=== PATIENT | female | born 1945 | race Caucasian/White ===

== ENCOUNTER 2019-03-05 06:54 | Day surgery (SDC) | payer MEDICARE, BC ==
[~2019-03-05 06:54] MED LIST: Lactated Ringers 1,000 ML IV SCH; Lidocaine 1%/Sod Bicarbonate in NS 8.4% 1 ML Syringe IDERM PRN; Sodium Chloride 0.9% 10 ML Syringe FLUSH PRN
[2019-03-05] MEDS ORDERED: Lidocaine 1% 4 ML ONE (07:28)
[2019-03-05] MEDS ORDERED: Propofol 200 MG/20 ML SDV ONE (07:29)
[2019-03-05] MEDS ORDERED: fentaNYL 100 MCG/2 ML SDV ONE (07:29)
--- NOTE | 2019-03-05 07:32 | PCM.PREANE ---
Preanesthetic Assessment - Procedure Proposed Procedure: colonoscopy and egd - Anesthesia/Transfusion/Family Hx Anesthesia History: Prior Anesthesia Without Reaction Family History of Anesthesia Reaction: No Transfusion History: No Prior Transfusion(s) - Review of Systems General: No Symptoms Pulmonary: Shortness of Breath (any exertion) Cardiovascular: No Symptoms Gastrointestinal: No Symptoms Neurological: No Symptoms Other: Reports: Thyroid Problems - Physical Assessment NPO Status Date: 03/04/19 NPO Status Time: 21:00 Pulse: 73 O2 Sat by Pulse Oximetry: 97 Respiratory Rate: 16 Blood Pressure: 183/83 Temperature: 97.6 F Height: 5 ft 3 in Weight: 70 kg ASA Class: 3 Mental Status: Alert & Oriented x3 Airway Class: Mallampati = 1 Dentition: Reports: Normal Dentition Thyro-Mental Finger Breadths: 3 Mouth Opening Finger Breadths: 3 ROM/Head Extension: Full Lungs: Clear to Auscultation, Normal Respiratory Effort Cardiovascular: Regular Rate, Regular Rhythm - Allergies Allergies/Adverse Reactions: Allergies Allergy/AdvReac Type Severity Reaction Status Date / Time Penicillins Allergy Cannot Verified 03/04/19 10:57 Remember - Blood Blood Available: No - Anesthesia Plan Beta Orion: Labetalol Med Last Dose Date: 03/05/19 (n) Med Last Dose Time: 07:40 - Acknowledgements Anesthesia Type Planned: MAC Pt an Appropriate Candidate for the Planned Anesthesia: Yes Alternatives and Risks of Anesthesia Discussed w Pt/Guardian: Yes Pt/Guardian Understands and Agrees with Anesthesia Plan: Yes PreAnesthesia Questionnaire HEENT History: Reports: Other (See Below) Other HEENT History: eye surgery Cardiovascular History: Reports: CAD, Hypertension, Other (See Below) Other Cardiovascular History: bilateral carotid stenosis, aortic valve disease Respiratory History: Reports: SOB Gastrointestinal History: Reports: Other (See Below) Other Gastrointestinal History: dysphagia, positive cologard Genitourinary History: Reports: None 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 Neurological History: Reports: None Psychiatric History: Reports: None Endocrine/Metabolic History: Reports: Hypothyroidism Hematologic History: Reports: Other (See Below) Other Hematologic History: leukocytosis Immunologic History: Reports: None Oncologic (Cancer) History: Reports: None Dermatologic History: Reports: None - Past Surgical History Head Surgeries/Procedures: Reports: None Cardiovascular Surgical History: Reports: Carotid Endarterectomy, Coronary Artery Bypass Respiratory Surgical History: Reports: None Female Surgical History: Reports: Breast Biopsy Male Surgical History: Reports: None Endocrine Surgical History: Reports: None Neurological Surgical History: Reports: None Musculoskeletal Surgical History: Reports: None Oncologic Surgical History: Reports: None Dermatological Surgical History: Reports: None - SUBSTANCE USE Smoking Status *Q: Former Smoker Tobacco Use Within Last Twelve Months: No Second Hand Smoke Exposure: No Days Per Week of Alcohol Use: 0 Recreational Drug Use History: No - HOME MEDS Home Medications: Home Meds Aspirin [Children's Aspirin] 81 mg PO DAILY 03/04/19 [History] Labetalol HCl [Labetalol] 100 mg PO BID 03/04/19 [History] Levothyroxine 75 mcg PO DAILY 03/04/19 [History] Losartan Potassium 50 mg PO BID 03/04/19 [History] Rosuvastatin Calcium 20 mg PO DAILY 03/04/19 [History] hydroCHLOROthiazide [Hydrochlorothiazide] 12.5 mg PO DAILY 03/04/19 [History] - CURRENT (IN HOUSE) MEDS Current Meds: Current Medications Lactated Ringer's (Ringers, Lactated) 1,000 mls @ 125 mls/hr IV ASDIRECTED CIELO Stop: 03/05/19 23:00 Lidocaine/Sodium Bicarbonate (Buffered Lidocaine 1% In Ns 8.4%) 0.25 ml IDERM ONETIME PRN PRN Reason: Prior to IV Start Stop: 03/05/19 18:00 Sodium Chloride (Saline Flush) 10 ml FLUSH ASDIRECTED PRN PRN Reason: Keep Vein Open Stop: 03/05/19 18:00
[2019-03-05] MEDS ORDERED: ePHEDrine/Normal Saline 25 MG/5 ML Syringe ONE ×2 (08:21→08:33)
[2019-03-05] MEDS ORDERED: Phenylephrine/Normal Saline 100 MCG/ML 10 ML Syringe ONE (08:33)
--- NOTE | 2019-03-05 09:01 | PCM.OPNOTE ---
- General Post-Op/Procedure Note Date of Surgery/Procedure: 03/05/19 Operative Procedure(s): egd with bx/ colonoscopy Pre Op Diagnosis: positive cologuard/ dysphagia Post-Op Diagnosis: Same Anesthesia Technique: MAC Primary Surgeon: Sander Roman EBL in mLs: 0 Complications: None Condition: Good
--- NOTE | 2019-03-05 09:07 | PCM48HPAN ---
Post Anesthesia Note - EVALUATION WITHIN 48HRS OF ANESTHETIC Vital Signs in Normal Range: Yes Patient Participated in Evaluation: Yes Respiratory Function Stable: Yes Airway Patent: Yes Cardiovascular Function Stable: Yes Hydration Status Stable: Yes Pain Control Satisfactory: Yes Nausea and Vomiting Control Satisfactory: Yes Mental Status Recovered: Yes (awake and talking) Pulse Rate: 69 SaO2: 94 Resp Rate: 16 Temperature: 97.9 F Blood Pressure: 92/64
--- NOTE | 2019-03-06 08:51 | OR ---
DATE OF OPERATION: 03/05/2019 SURGEON: Sander Roman MD PREOPERATIVE DIAGNOSIS: Positive Cologuard. POSTOPERATIVE DIAGNOSIS: Positive Cologuard. OPERATION PERFORMED: Colonoscopy to the cecum. FINDINGS: Mild internal hemorrhoids. There was no angiodysplasias, neoplasias, large tumor, ulcerations or diverticulum. ANESTHESIA: Done under IV sedation. DESCRIPTION OF PROCEDURE: The patient was having been taken to the endoscopy room and having been connected to monitoring equipment, given IV sedation for upper GI endoscopy, IV sedation was continued for colonoscopy. She was placed in left lateral position. Perianal area inspected was normal. Rectal exam showed good sphincter tone. A video Olympus colonoscope was then introduced into the rectum and threaded up to the cecum, where the appendicular orifice was noted. Prep was excellent, [place]. Cleansing Score grade A, and the scope slowly withdrawn showing the cecum, ascending colon, transverse colon, descending colon, sigmoid colon, and rectum. The patient tolerated the procedure and sent to recovery room in a stable condition. ESTIMATED BLOOD LOSS: MMODAL /[id number]
--- NOTE | 2019-03-06 08:51 | OR ---
DATE OF OPERATION: 03/05/2019 SURGEON: Sadner Roman MD PREOPERATIVE DIAGNOSIS: Dysphagia. POSTOPERATIVE DIAGNOSIS: Dysphagia. OPERATION PERFORMED: Esophagogastroduodenoscopy with biopsy. FINDINGS: Some erythema in the duodenal bulb, which was biopsied. Second portion of the duodenum and pyloric channel were unremarkable. Antrum showed some flattening mucosa suggestive of chronic gastritis. Biopsies were taken. J-maneuver showed a small sliding hiatus. Body and cardia were unremarkable. GE junction was located at 40 cm. There was 1 linear erosion at the area, some irregularity in the Z-line, and multiple biopsies were taken of distal esophagus at the GE junction. The rest of the esophagus was unremarkable. ANESTHESIA: Done under IV sedation. DESCRIPTION OF PROCEDURE: The patient was taken to the endoscopy room, placed in a supine position, connected to monitoring equipment, given IV sedation. Bite block was inserted. A video Olympus gastroscope placed in the posterior oropharynx under direct vision and threaded past the cricopharyngeus, down the esophagus, into the stomach. The stomach was insufflated and scope passed through the pylorus to the second portion of the duodenum. It was slowly withdrawn showing normal second portion of the duodenum and duodenal bulb, which had some abnormalities as described above, which were biopsied. Pyloric channel was unremarkable. Antrum showed some flattening mucosa and this was biopsied looking for H. pylori and histology for chronic gastritis. J-maneuver showed intact hiatus, but there was a small sliding hiatal hernia. Body, cardia, and fundus of the stomach unremarkable. Scope withdrawn. The GE junction showed linear erosion and irregularity of the Z-line. Multiple biopsies were taken of the GE junction. It was located at 40 cm. Rest of the esophagus was viewed as the scope was withdrawn and unremarkable. The patient tolerated the procedure. Specimen sent to pathology in a labeled container. IV sedation continued for colonoscopy. ESTIMATED BLOOD LOSS: MMODAL /[id number]
== END 2019-03-05 09:59 | disposition home or self-care (01) ==
LOC: JD.SDS 06:54
PROVIDERS: ATTEND Surgery
DX: R19.5 Other fecal abnormalities (principal); K64.8 Other hemorrhoids; K20.9 Esophagitis, unspecified; K31.89 Other diseases of stomach and duodenum; K44.9 Diaphragmatic hernia without obstruction or gangrene; I25.10 Atherosclerotic heart disease of native coronary artery without angina pectoris; I11.0 Hypertensive heart disease with heart failure; I08.0 Rheumatic disorders of both mitral and aortic valves; I50.9 Heart failure, unspecified; E03.9 Hypothyroidism, unspecified; E78.01 Familial hypercholesterolemia; Z88.0 Allergy status to penicillin; Z95.1 Presence of aortocoronary bypass graft; Z87.891 Personal history of nicotine dependence; Z79.82 Long term (current) use of aspirin; Z79.899 Other long term (current) drug therapy
CPT/HCPCS: 36415; 43239; 45378; 80048; J2001; J2370; J2704; J3010; J7050; J7120; 00813

== ENCOUNTER 2020-12-19 07:29 | Day surgery (SDC) | payer MEDICARE, BC ==
[2020-12-19] MEDS ORDERED: Propofol 200 MG/20 ML SDV ONE ×2 (08:47→09:23)
--- NOTE | 2020-12-19 09:11 | PCM.PREANE ---
Preanesthetic Assessment - Anesthesia/Transfusion/Family Hx Anesthesia History: Prior Anesthesia Without Reaction Family History of Anesthesia Reaction: No Transfusion History: No Prior Transfusion(s) - Review of Systems General: Other (covid negative) Pulmonary: Shortness of Breath (chronic) Cardiovascular: Other (hx of CABG and carotid, HTN, CHF on diuretic) Gastrointestinal: Other (hiatal hernia, barretts esophagus) Other: Reports: Thyroid Problems - Physical Assessment NPO Status Date: 12/18/20 NPO Status Time: 22:00 Vital Signs: Last Vital Signs Temp 36.6 C 12/19/20 07:35 Pulse 60 12/19/20 07:35 Resp 16 12/19/20 07:35 BP 149/59 H 12/19/20 07:35 Pulse Ox 97 12/19/20 07:35 Height: 1.6 m Weight: 71.668 kg ASA Class: 3 Mental Status: Alert & Oriented x3 Airway Class: Mallampati = 2 Dentition: Reports: Normal Dentition Thyro-Mental Finger Breadths: 3 Mouth Opening Finger Breadths: 3 ROM/Head Extension: Full Lungs: Clear to Auscultation, Normal Respiratory Effort Cardiovascular: Regular Rate, Regular Rhythm - Lab Values: Laboratory Last Values SARS-CoV-2 RNA (SANDY) Negative (NEGATIVE) 12/19/20 07:30 - Allergies Allergies/Adverse Reactions: Allergies Allergy/AdvReac Type Severity Reaction Status Date / Time Penicillins Allergy Cannot Verified 12/19/20 08:44 Remember - Blood Blood Available: No Product(s) Available: None - Anesthesia Plan Pre-Op Medication Ordered: None Beta Orion: Labetalol Med Last Dose Date: 12/19/20 Med Last Dose Time: 06:30 - Acknowledgements Anesthesia Type Planned: MAC Pt an Appropriate Candidate for the Planned Anesthesia: Yes Alternatives and Risks of Anesthesia Discussed w Pt/Guardian: Yes Pt/Guardian Understands and Agrees with Anesthesia Plan: Yes PreAnesthesia Questionnaire HEENT History: Reports: Impaired Vision, Other (See Below) Other HEENT History: wears glasses Cardiovascular History: Reports: CAD, High Cholesterol, Hypertension, Other (See Below) Other Cardiovascular History: bilateral carotid stenosis, aortic valve disease Respiratory History: Reports: SOB Gastrointestinal History: Reports: Hiatal Hernia, Other (See Below) Other Gastrointestinal History: dysphagia, arizmendi's esophagus Genitourinary History: Reports: None 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 Musculoskeletal History: Reports: None Neurological History: Reports: None Psychiatric History: Reports: None Endocrine/Metabolic History: Reports: Hypothyroidism Hematologic History: Reports: Other (See Below) Other Hematologic History: leukocytosis Immunologic History: Reports: None Oncologic (Cancer) History: Reports: None Dermatologic History: Reports: None - Past Surgical History Head Surgeries/Procedures: Reports: None HEENT Surgical History: Reports: Cataract Surgery, Laser Surgery Cardiovascular Surgical History: Reports: Carotid Endarterectomy, Coronary Artery Bypass Respiratory Surgical History: Reports: None GI Surgical History: Reports: Bariatric Procedure, Colonoscopy, EGD Female Surgical History: Reports: Breast Biopsy Male Surgical History: Reports: None Endocrine Surgical History: Reports: None Neurological Surgical History: Reports: None Musculoskeletal Surgical History: Reports: None Oncologic Surgical History: Reports: None Dermatological Surgical History: Reports: None - SUBSTANCE USE Tobacco Use Status *Q: Former Tobacco User Recreational Drug Use History: No - HOME MEDS Home Medications: Home Meds Aspirin [Children's Aspirin] 81 mg PO DAILY 03/04/19 [History] Labetalol HCl [Labetalol] 100 mg PO BID 03/04/19 [History] Losartan Potassium 50 mg PO BID 03/04/19 [History] Rosuvastatin Calcium 20 mg PO DAILY 03/04/19 [History] hydroCHLOROthiazide [Hydrochlorothiazide] 25 mg PO DAILY 03/04/19 [History] Levothyroxine Sodium [Levothyroxine] 50 mcg PO DAILY 12/16/20 [History] amLODIPine Besylate [Norvasc] 2.5 mg PO DAILY 12/16/20 [History] - CURRENT (IN HOUSE) MEDS Current Meds: Current Medications Lactated Ringer's (Ringers, Lactated) 1,000 mls @ 125 mls/hr IV ASDIRECTED CIELO Stop: 12/19/20 23:00 Last Admin: 12/19/20 07:40 Dose: 125 mls/hr Documented by: Lidocaine/Sodium Bicarbonate (Lidocaine 1%/Sod Bicarbonate In Ns 8.4% 1 Ml Syringe) 0.25 ml IDERM ONETIME PRN PRN Reason: Prior to IV Start Stop: 12/19/20 18:00 Last Admin: 12/19/20 07:40 Dose: 0.25 ml Documented by: Sodium Chloride (Sodium Chloride 0.9% 10 Ml Syringe) 10 ml FLUSH ASDIRECTED PRN PRN Reason: Keep Vein Open Stop: 12/19/20 18:00 Discontinued Medications Propofol (Propofol 200 Mg/20 Ml Sdv) Confirm Administered Dose 200 mg .ROUTE .STK-MED ONE Stop: 12/19/20 08:48
--- NOTE | 2020-12-19 10:18 | PCM48HPAN ---
Post Anesthesia Note - EVALUATION WITHIN 48HRS OF ANESTHETIC Vital Signs in Normal Range: Yes Patient Participated in Evaluation: Yes Respiratory Function Stable: Yes Airway Patent: Yes Cardiovascular Function Stable: Yes Hydration Status Stable: Yes Pain Control Satisfactory: Yes Nausea and Vomiting Control Satisfactory: Yes Mental Status Recovered: Yes Vital Signs: Last Vital Signs Temp 36.6 C 12/19/20 07:35 Pulse 60 12/19/20 07:35 Resp 16 12/19/20 07:35 BP 149/59 H 12/19/20 07:35 Pulse Ox 97 12/19/20 07:35
--- NOTE | 2020-12-19 11:20 | PROC ---
DATE OF OPERATION: 12/19/2020 SURGEON: Sandra Tan MD PREOPERATIVE DIAGNOSES: Dysphagia and history of Vargas esophagus. POSTOPERATIVE DIAGNOSES: 1. Superficial antral ulcers - biopsied. 2. Small hiatal hernia. 3. 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 4. [id number]-[id number] stenosis in the distal esophagus - dilated. OPERATION PERFORMED: Esophagogastroduodenoscopy with dilation. ANESTHESIA: Monitored anesthesia care. ESTIMATED BLOOD LOSS: Minimal. COMPLICATIONS: None. INDICATION AND CONSENT: The patient is a 75-year-old female who was seen and evaluated for dysphagia and followup for Vargas esophagus. The patient had undergone EGD in 2019, was found to have Vargas esophagus on biopsies and since last EGD, the patient has been having some trouble swallowing especially solid foods such as meats and breads. Therefore, decision was made to proceed with surveillance scope for Vargas esophagus as well as possible dilation. We discussed risks, benefits, and alternatives for this patient. Informed consent was obtained. DESCRIPTION OF PROCEDURE: The patient was taken to the procedure room, placed in left lateral decubitus position. Bite block was placed. Time-out was performed, and procedure was started. We took the Olympus scope, placed into the mouth, and taking all the way to the second portion of duodenum, which was normal. The first portion of duodenum was normal. In the antrum, there were several superficial ulcerations that were nonbleeding. Two of these were biopsied for pathologic exam. These were located only in the antrum. The body as well as the fundus and cardia appeared to be normal. On retroflexion, there was small sliding-type hiatal hernia. We took the scope into the GE junction, which was at 36 cm. There was appearance of short segment Vargas esophagus at this area. Four quadrant biopsies were taken 1 cm apart for surveillance. This was taken in the GE junction and distal esophagus with cold forceps. EBL was minimal. Upon withdrawing into the distal esophagus, we noted that there was [id number] narrowing in the distal esophagus, the narrowing was intrinsic and benign appearing. Therefore, decision was made to go ahead and dilate this area to see if the patient will have some relief from her dysphagia. A 12, 13.5, and 15 TTS balloon was brought into the field and placed into the distal esophagus under direct visualization, and dilation was performed to 15 mm. Post dilation, the area appeared to be moderately open. After this was done, again we went back to examined this area. There was no significant mucosal disruption and there was no significant bleeding. Air was suctioned out, and scope was removed. The rest of the esophagus appeared to be normal. The patient will be allowed to return home. Follow up with me in [place] in 2 weeks to discuss pathology results. MMODAL /[id number] MTDAdan
== END 2020-12-19 11:19 | disposition home or self-care (01) ==
LOC: JD.SDS 07:29
PROVIDERS: ATTEND Surgery
DX: K22.2 Esophageal obstruction (principal); K29.50 Unspecified chronic gastritis without bleeding; K31.89 Other diseases of stomach and duodenum; K22.10 Ulcer of esophagus without bleeding; K44.9 Diaphragmatic hernia without obstruction or gangrene; I25.10 Atherosclerotic heart disease of native coronary artery without angina pectoris; I10 Essential (primary) hypertension; E78.00 Pure hypercholesterolemia, unspecified; Z01.812 Encounter for preprocedural laboratory examination; Z20.822 Contact with and (suspected) exposure to COVID-19; E03.9 Hypothyroidism, unspecified; Z79.890 Hormone replacement therapy; Z95.1 Presence of aortocoronary bypass graft; Z98.890 Other specified postprocedural states; Z79.899 Other long term (current) drug therapy; Z88.0 Allergy status to penicillin; Z87.891 Personal history of nicotine dependence
CPT/HCPCS: 43239; 43249; 88305; 88342; J2704; J7120; U0002; 00731; 99100

== ENCOUNTER 2021-02-12 06:20 | Emergency (ER) | payer MEDICARE, BC ==
--- NOTE | 2021-02-12 06:56 | EDM.PDOC ---
<SebastiánAngel landeros Rosa - Last Filed: 02/12/21 07:45> ED HPI GENERAL MEDICAL PROBLEM - General Chief Complaint: Neuro Symptoms/Deficits Stated Complaint: [facility] Time Seen by Provider: 02/12/21 06:28 Source of Information: Reports: Patient, Family (, son, [id number]) History Limitations: Reports: Altered Mental Status (slow to answer, mildly confused) - History of Present Illness INITIAL COMMENTS - FREE TEXT/NARRATIVE: A stroke alert was called for this patient. Mrs. Posada is a very pleasant 75-year-old woman who is now brought to the ED by EMS after she fell at home and was unable to get up. The patient's family tells me that she got to bed around 22:30 last night, then woke up around 05:30 this morning. She sat on the side of her bed, then fell onto the floor. She was able to communicate normally, but was unable to get up on her own. The patient's called their son and [id number], who came over and helped get her back into bed, however, when she continued to have weakness, they called EMS. EMS reported that they found her to have right upper extremity weakness. Both the patient and her tell me that the patient did not take any prescription or [id number] sleep aids last night. The patient's tells me that the patient had similar symptoms several years ago, due to dehydration. No prior history of stroke, although she has undergone bilateral carotid endarterectomies. Her only anticoagulant is an 81 mg aspirin per day. Here in the ED, the patient's initial BP is found to be elevated at 177/53, otherwise, she is hemodynamically stable, afebrile, saturating 94% on room air. She is complaining of a mild headache, and she vomited a small amount here in the ED. She appears to be comfortable while semirecumbent on the gurney, in no acute distress. According to the patient's family, prior to this morning, the patient denies having a recent fever, chills, sore throat, ear pain, nasal or sinus congestion, cough, dyspnea, chest pain, palpitations, nausea, vomiting, constipation, diarrhea, abdominal pain, urinary symptoms, recent weight gain or weight loss, recent bloody bowel movements or black bowel movements, recent joint aches, headaches, or rashes. The patient's does not recall the name of her PCP. Her Director Systems is Dr. Angel Freeman. The patient has received 2 doses of the COVID vaccine. Headache Pain Score (Numeric/FACES): 3 - Related Data Allergies Allergy/AdvReac Type Severity Reaction Status Date / Time Penicillins Allergy Cannot Verified 02/12/21 06:54 Remember Home Meds: Home Meds Aspirin [Children's Aspirin] 81 mg PO DAILY 03/04/19 [History] Labetalol HCl [Labetalol] 100 mg PO BID 03/04/19 [History] Losartan Potassium 50 mg PO BID 03/04/19 [History] Rosuvastatin Calcium 20 mg PO DAILY 03/04/19 [History] hydroCHLOROthiazide [Hydrochlorothiazide] 25 mg PO DAILY 03/04/19 [History] Levothyroxine Sodium [Levothyroxine] 75 mcg PO DAILY 12/16/20 [History] Past Medical History HEENT History: Reports: Impaired Vision (wears glasses) Cardiovascular History: Reports: CAD, High Cholesterol, Hypertension, Other (See Below) (Cerebrovascular disease, s/p bilateral CEAs) Gastrointestinal History: Reports: GERD (with Barratt esophagus, untreated), Hiatal Hernia Endocrine/Metabolic History: Reports: Hypothyroidism - Past Surgical History HEENT Surgical History: Reports: Cataract Surgery (bilateral), Laser Surgery Cardiovascular Surgical History: Reports: Carotid Endarterectomy (bilateral), Coronary Artery Bypass (x 4 vessel, 2016) GI Surgical History: Reports: Bariatric Procedure, Colonoscopy, EGD Female Surgical History: Reports: Breast Biopsy Social & Family History - Tobacco Use Tobacco Use Status *Q: Former Tobacco User Years of Tobacco use: 20 Packs/Tins Daily: 1 Month/Year Tobacco Last Used: Quit around 1993 Tobacco Use Comment: Started smoking around 1972 - Caffeine Use Caffeine Use: Reports: Coffee - Alcohol Use Alcohol Use History: No - Recreational Drug Use Recreational Drug Use: No - Living Situation & Occupation Living situation: Reports: , with Spouse Occupation: Retired ED ROS GENERAL - Review of Systems Review Of Systems: Comprehensive ROS is negative, except as noted in HPI. ED EXAM, NEURO - Physical Exam Exam: See Below Exam Limited By: Altered Mental Status (some difficulty understanding commands) General Appearance: Alert, WD/WN, No Apparent Distress Eye Exam: Bilateral Eye: EOMI, Normal Inspection (s/p cataract surgery) Ears: Normal External Exam, Hearing Grossly Normal Nose: Normal Inspection Throat/Mouth: Normal Inspection, Normal Lips, Normal Voice, No Airway Compromise Head Exam: Atraumatic, Normocephalic Neck: Normal Inspection, Full Range of Motion Respiratory/Chest: No Respiratory Distress, Lungs Clear, Normal Breath Sounds, No Accessory Muscle Use Cardiovascular: Normal Peripheral Pulses, Regular Rate, Rhythm, No Edema, No Gallop, No JVD, No Murmur, No Rub GI/Abdominal: Normal Bowel Sounds, Soft, Non-Tender, No Organomegaly, No Distention, No Abnormal Bruit, No Mass Neurological: Normal Dorsiflexion, CN II-XII Intact, Normal Plantar Flexion, No Motor/Sensory Deficits, Oriented x 3, Other (Somewhat slow to answer questions, and apparent confusion in following some commands. Speech is not slurred, exactly, but slightly dysarthric, similar to if the patient were somewhat sleepy or tired.) Back Exam: Normal Inspection, Full Range of Motion, NT Extremities: Normal Inspection, Normal Range of Motion, No Pedal Edema, Normal Capillary Refill Psychiatric: Flat Affect Skin Exam: Warm, Dry, Intact, Normal Color, No Rash #1 Interpretation EKG Date: 02/12/21 Time: 06:41 Rhythm: Other (Sinus bradycardia) Rate (Beats/Min): 57 Merrill: Normal P-Wave: Present QRS: Normal ST-T: Normal QT: Normal Comparison: NA - No Prior EKG Course - Re-Assessments/Exams Free Text/Narrative Re-Assessment/Exam: 02/12/21 06:50 As above, the patient woke around 5:30 this morning, sat on the side of her bed, then fell onto the floor and was unable to get up on her own. After family members got her back into bed, they called EMS, who felt that she had right upper extremity weakness, however, here in the ED, on neurologic examination, while she has some cognitive issues understanding instructions, I find that she has normal strength symmetrically. She is complaining of a slight headache, and she vomited a tiny amount here in the ED. Her physical exam is unremarkable. I ordered a work-up that included a stat CT of the head without contrast, several blood tests, a urinalysis by quick catheter, a portable chest x-ray, and an ECG. CT of the head without contrast is read by vRjeffery as "Negative CT Head for acute intracranial process." 02/12/21 07:23 The patient's nurse was able to get the patient up, and the patient was able to walk to the bathroom and back. 02/12/21 07:39 Notified by Marichuy BACON that the patient's oxygen saturation is periodically dipping into the 80s, although once aroused, it jumps to 97% on room air. The patient's had mentioned that the patient has a lot of breathing problems, although she does not have any diagnosed pulmonary disease. She does not have a diagnosis of obstructive sleep apnea. I have added a swab for the SARS-CoV-2 virus the patient's work-up. 02/12/21 07:45 Portable chest radiograph reviewed. The cardiac silhouette is within normal limits. No pulmonary vascular congestion. No pleural effusions seen on this AP view. No focal infiltrate. No pneumothorax. Aortosclerosis amd mild aortic aneurismal dilatation noted. Sternotomy wires and cardiac clips noted. Mild thoracolumbar scoliosis noted. Formal read per the Radiologist pending. The patient's CBC is unremarkable. Her CMP is remarkable for BUN/Cr slightly elevated at 23/1.2, and slight hyperglycemia of 106, with the remainder of her CMP being unremarkable. Her magnesium level is within normal limits at 2.3. Her troponin is undetectably low. Her coags are within normal limits. Her urinalysis is unremarkable. 02/12/21 07:54 The patient continues to become hypoxemic with bradycardia whenever she falls asleep. I have ordered an ABG on room air. Case discussed with Dr. Ordoñez, and care of the patient turned over to him at this time, for change of shift. Departure - Departure Disposition: Home, Self-Care 01 Clinical Impression: Sleep related cramps of lower extremity, Sleep apnea syndrome - Discharge Information Instructions: Muscle Cramps and Spasms, [id number], Screening for Sleep Apnea Referrals: Anne Marie Dan, [facility]ILITATOR [Primary Care Provider] - Forms: ED Department Discharge Additional Instructions: Evaluation in the emergency room today in regards to development of bilateral lower extremity cramping pain this morning that worsened when you stood up from bed. This caused her to fall to the floor. Your speech was not appropriate and concern for stroke was entertained. Dr. Lowery could find no evidence of stroke on examination in the ED. CT of the head also proved to be normal other than age-appropriate degenerative changes. Lab test also revealed no significant abnormalities. It was appreciated that when you fell asleep in the ED your O2 saturations dropped as low as 76 with normal being still above 90 when you are sleeping. It is highly suspect that you are suffering from sleep apnea syndrome which means when you fall asleep you were not breathing appropriately and stopped breathing many times during the night awakening feeling like you did go to sleep at all with increased daytime fatigue and feel like you have to nap all the time. Therefore further studies are required. Please discuss this with your personal care physician in [place] to arrange a sleep study. This can be done in our hospital but has to be arranged through Medicare/insurance program prior to being arranged. Second problem was that of severe cramping in her lower extremities. It is my suggestion that you discontinue hydrochlorothiazide which is your diuretic or water pill as it is likely the culprit and causing cramping in your lower extremities. If blood pressure elevates after discontinuing the hydrochlorothiazide over the next few weeks alternative medication can be used to help control blood pressure if needed. It is good to have a bottle of Gatorade or Powerade zero daily to replace serum potassium levels that may have been depleted by the Hydrochlorothiazide ( blood preasure pill) that you are taking. <Adrien Ordoñez - Last Filed: 02/12/21 08:59> Course - Vital Signs Last Recorded V/S: Last Vital Signs Temp 36.1 C 02/12/21 06:44 Pulse 61 02/12/21 06:44 Resp 16 02/12/21 06:44 BP 177/53 H 02/12/21 06:44 Pulse Ox 94 L 02/12/21 06:44 - Orders/Labs/Meds Orders: Active Orders 24 hr Category Date Time Status EKG Documentation Completion [RC] STAT Care 02/12/21 06:29 Active Chest 1V Frontal [CR] Stat Exams 02/12/21 06:29 Taken Head wo Cont [CT] Stat Exams 02/12/21 06:28 Taken Sodium Chloride 0.9% [Normal Saline] 500 ml Med 02/12/21 08:44 Active IV .BOLUS Medication Orders Sodium Chloride (Normal Saline) 500 mls @ 500 mls/hr IV .BOLUS ONE Stop: 02/12/21 09:43 Last Admin: 02/12/21 08:47 Dose: 500 mls/hr Documented by: GAYLE Labs: Laboratory Tests 02/12/21 02/12/21 02/12/21 Range/Units 06:42 06:42 06:42 WBC 6.52 (3.98-10.04) K/mm3 RBC 3.79 L (3.98-5.22) M/mm3 Hgb 11.9 (11.2-15.7) gm/dl Hct 36.1 (34.1-44.9) % MCV 95.3 H (79.4-94.8) fl MCH 31.4 (25.6-32.2) pg MCHC 33.0 (32.2-35.5) g/dl RDW Std Deviation 43.5 (36.4-46.3) fL Plt Count 321 (182-369) K/mm3 MPV 8.9 L (9.4-12.3) fl Neutrophils % (Manual) 50 (40-60) % Band Neutrophils % 0 (0-10) % Lymphocytes % (Manual) 37 (20-40) % Atypical Lymphs % 0 % Monocytes % (Manual) 10 (2-10) % Eosinophils % (Manual) 3 (0.7-5.8) % Basophils % (Manual) 0 L (0.1-1.2) Platelet Estimate Adequate RBC Morph Comment Normal PT 10.3 (9.7-12.0) SECONDS INR 0.96 APTT 27.1 (21.7-31.4) SECONDS Puncture Site ABG pH (7.35-7.45) ABG pCO2 (35.0-45.0) mmHg ABG pO2 (80.0-100.0) mmHg ABG HCO3 (22.0-26.0) meq/L ABG O2 Saturation (96.0-97.0) % ABG Base Excess (-2-2.0) Avel Test O2 Delivery Device Sodium 138 (136-145) mEq/L Potassium 4.1 (3.5-5.1) mEq/L Chloride 102 (98-107) mEq/L Carbon Dioxide 28 (21-32) mEq/L Anion Gap 12.1 (5-15) BUN 23 H (7-18) mg/dL Creatinine 1.2 H (0.55-1.02) mg/dL Est Cr Clr Drug Dosing 32.48 mL/min Estimated GFR (MDRD) 44 (>60) mL/min BUN/Creatinine Ratio 19.2 H (14-18) Glucose 106 H (70-99) mg/dL Calcium 9.2 (8.5-10.1) mg/dL Magnesium 2.3 (1.8-2.4) mg/dL Total Bilirubin 0.7 (0.2-1.0) mg/dL AST 22 (15-37) U/L ALT 11 L (14-59) U/L Alkaline Phosphatase 93 (46-116) U/L Troponin I < 0.017 (0.00-0.056) ng/mL Total Protein 6.6 (6.4-8.2) g/dl Albumin 3.4 (3.4-5.0) g/dl Globulin 3.2 gm/dL Albumin/Globulin Ratio 1.1 (1-2) Urine Color (Yellow) Urine Appearance (Clear) Urine pH (5.0-8.0) Ur Specific [place] (1.005-1.030) Urine Protein (Negative) Urine Glucose (UA) (Negative) Urine Ketones (Negative) Urine Occult Blood (Negative) Urine Nitrite (Negative) Urine Bilirubin (Negative) Urine Urobilinogen (0.2-1.0) Ur Leukocyte Esterase (Negative) Urine RBC (0-5) /hpf Urine WBC (0-5) /hpf Ur Squamous Epith Cells (0-5) /hpf Urine Bacteria (FEW) /hpf Urine Mucus (FEW) /hpf SARS-CoV-2 RNA (SANDY) (NEGATIVE) 02/12/21 02/12/21 02/12/21 Range/Units 07:26 07:39 07:53 WBC (3.98-10.04) K/mm3 RBC (3.98-5.22) M/mm3 Hgb (11.2-15.7) gm/dl Hct (34.1-44.9) % MCV (79.4-94.8) fl MCH (25.6-32.2) pg MCHC (32.2-35.5) g/dl RDW Std Deviation (36.4-46.3) fL Plt Count (182-369) K/mm3 MPV (9.4-12.3) fl Neutrophils % (Manual) (40-60) % Band Neutrophils % (0-10) % Lymphocytes % (Manual) (20-40) % Atypical Lymphs % % Monocytes % (Manual) (2-10) % Eosinophils % (Manual) (0.7-5.8) % Basophils % (Manual) (0.1-1.2) Platelet Estimate RBC Morph Comment PT (9.7-12.0) SECONDS INR APTT (21.7-31.4) SECONDS Puncture Site Lt radial ABG pH 7.38 (7.35-7.45) ABG pCO2 43.9 (35.0-45.0) mmHg ABG pO2 86.0 (80.0-100.0) mmHg ABG HCO3 25.3 (22.0-26.0) meq/L ABG O2 Saturation 94.5 L (96.0-97.0) % ABG Base Excess 0.5 (-2-2.0) Avel Test Positive O2 Delivery Device Room air Sodium (136-145) mEq/L Potassium (3.5-5.1) mEq/L Chloride (98-107) mEq/L Carbon Dioxide (21-32) mEq/L Anion Gap (5-15) BUN (7-18) mg/dL Creatinine (0.55-1.02) mg/dL Est Cr Clr Drug Dosing mL/min Estimated GFR (MDRD) (>60) mL/min BUN/Creatinine Ratio (14-18) Glucose (70-99) mg/dL Calcium (8.5-10.1) mg/dL Magnesium (1.8-2.4) mg/dL Total Bilirubin (0.2-1.0) mg/dL AST (15-37) U/L ALT (14-59) U/L Alkaline Phosphatase (46-116) U/L Troponin I (0.00-0.056) ng/mL Total Protein (6.4-8.2) g/dl Albumin (3.4-5.0) g/dl Globulin gm/dL Albumin/Globulin Ratio (1-2) Urine Color Light yellow (Yellow) Urine Appearance Clear (Clear) Urine pH 7.0 (5.0-8.0) Ur Specific [place] 1.020 (1.005-1.030) Urine Protein 1+ H (Negative) Urine Glucose (UA) Negative (Negative) Urine Ketones Negative (Negative) Urine Occult Blood Trace-lysed H (Negative) Urine Nitrite Negative (Negative) Urine Bilirubin Negative (Negative) Urine Urobilinogen 0.2 (0.2-1.0) Ur Leukocyte Esterase Trace H (Negative) Urine RBC 0-5 (0-5) /hpf Urine WBC 0-5 (0-5) /hpf Ur Squamous Epith Cells 0-5 (0-5) /hpf Urine Bacteria Few (FEW) /hpf Urine Mucus Rare (FEW) /hpf SARS-CoV-2 RNA (SANDY) Negative (NEGATIVE) Meds: Medications Generic Name Dose Route Start Last Admin Trade Name Freq PRN Reason Stop Dose Admin Sodium Chloride 500 mls @ 500 mls/hr 02/12/21 08:44 02/12/21 08:47 Normal Saline IV 02/12/21 09:43 500 mls/hr .BOLUS ONE Administration Discontinued Medications Generic Name Dose Route Start Last Admin Trade Name Freq PRN Reason Stop Dose Admin Sodium Chloride 500 mls @ 1,000 mls/hr 02/12/21 07:42 02/12/21 07:48 Normal Saline IV 02/12/21 08:11 1,000 mls/hr .BOLUS ONE Administration - Re-Assessments/Exams Free Text/Narrative Re-Assessment/Exam: 02/12/21 08:21 ABGs reveal a pH of 7.38. PCO2 is 43.9. PO2 is 86.0 with an O2 sat of 94.5% on room air. Patient will have to see her primary care provider to get set up for a sleep study. COVID-19 screen is negative. Patient resides in [place] and therefore I am not sure exactly where she will have to go for the sleep study. Likely to our hospital or to a larger center. I am going to give her the rest of the IV fluid since when she awoke this morning she had bilateral severe cramping in both lower extremities that made her fall to the floor. They were staying in town last night with her son. As indicated she resides with her in [place]. On firm questioning he does not ever remember having to awaken her or poker does not breathe at night but he states he sleeps like a rock. She does have excessive daytime somnolence and fatigue. Departure - Departure Time of Disposition: 09:00 Condition: Fair - Discharge Information *PRESCRIPTION DRUG MONITORING PROGRAM REVIEWED*: Not Applicable *COPY OF PRESCRIPTION DRUG MONITORING REPORT IN PATIENT ERYN: Not Applicable Sepsis Event Note (ED) - Focused Exam Vital Signs: Vital Signs Temp Pulse Resp BP Pulse Ox 02/12/21 06:44 36.1 C 61 16 177/53 H 94 L - My Orders Last 24 Hours: My Active Orders 02/12/21 08:44 Sodium Chloride 0.9% [Normal Saline] 500 ml IV .BOLUS - Assessment/Plan Last 24 Hours: My Active Orders 02/12/21 08:44 Sodium Chloride 0.9% [Normal Saline] 500 ml IV .BOLUS
[2021-02-12] MEDS ORDERED: Sodium Chloride 0.9% 500 ML IV ONE ×2 (07:42→08:44)
[2021-02-12] MEDS ORDERED: Acetaminophen 325 MG Tab PO ONE (09:22)
--- NOTE | 2021-02-12 10:28 | CT ---
Head CT Technique: Multiple axial sections through the brain were obtained. Intravenous contrast was not utilized. Comparison: No prior intracranial imaging is available. Findings: Ventricles along with basal cisterns and sulci over the convexities are within normal limits for the patient's age. Minimal areas of diminished density are scattered within the periventricular white matter which is compatible with small vessel ischemic demyelination change. Diminished density is noted within both sides of the basal ganglia which likely represent multiple small lacunar infarcts. No other abnormal parenchymal densities are seen. No evidence of intracranial hemorrhage. No midline shift or mass-effect is seen. Bone window settings were reviewed which show no acute paranasal sinus findings or mastoid findings. No acute calvarial abnormality is appreciated. Impression: 1. Senescent change as noted above. 2. Nothing acute is appreciated on noncontrast head CT study. 3. If patient remains symptomatic, follow-up MRI could be considered. Diagnostic code #2 I agree with preliminary report from [facility], finalized on 02/12/21, 7:47 AM CDT, code 1
--- NOTE | 2021-02-12 11:00 | CR ---
Chest: Portable view of the chest was obtained. Comparison: No prior chest imaging is available. Heart size and mediastinum are within normal limits. Sternotomy is noted with evidence of prior CABG. Slight chronic appearing change is noted within both upper lungs. Lungs otherwise are clear with no acute parenchymal change. No acute osseous abnormality is appreciated. Impression: 1. Findings believed to be stable as noted above. 2. Nothing acute is otherwise seen on portable chest x-ray. Diagnostic code #2
== END 2021-02-12 09:34 | disposition home or self-care (01) ==
LOC: JD.ED 06:20
DX: G47.30 Sleep apnea, unspecified (principal); R25.2 Cramp and spasm; I25.10 Atherosclerotic heart disease of native coronary artery without angina pectoris; E78.00 Pure hypercholesterolemia, unspecified; I10 Essential (primary) hypertension; K21.9 Gastro-esophageal reflux disease without esophagitis; E03.9 Hypothyroidism, unspecified; Z79.82 Long term (current) use of aspirin; Z79.899 Other long term (current) drug therapy; Z88.0 Allergy status to penicillin; Z20.822 Contact with and (suspected) exposure to COVID-19; Z87.891 Personal history of nicotine dependence
CPT/HCPCS: 36415; 36600; 70450; 71045; 80053; 81001; 82803; 83735; 84484; 85007; 85027; 85610; 85730; 93005; 99285; A9270; J7030; U0002; 93010; 99284

== ENCOUNTER 2023-01-15 14:31 | Observation (INO) | payer MEDICARE, BC ==
[2023-01-15] MEDS ORDERED: Sodium Chloride 0.9% 10 ML Syringe FLUSH PRN (15:12)
[2023-01-15] MEDS ORDERED: Sodium Chloride 0.9% 1,000 ML IV STA (15:35)
[2023-01-15 16:21] LABS: BASOPHILS ABSOLUTE AUTO 0.02 K/mm3 (0.01-0.08); BASOPHILS PERCENT AUTO 0.4 % (0.1-1.2); EOSINOPHILS ABSOLUTE AUTO 0.01 K/mm3 (0.04-0.36); EOSINOPHILS PERCENT AUTO 0.2 (0.7-5.8); HEMATOCRIT 33.1 % (34.1-44.9); IMMATURE GRAN ABSOLUTE AUTO 0.01 K/mm3 (0.00-0.10); IMMATURE GRAN PERCENT AUTO 0.2 % (<=1.0); LYMPHOCYTES ABSOLUTE AUTO 0.77 K/mm3 (1.18-3.74); LYMPHOCYTES PERCENT AUTO 14.9 % (19.3-51.7); MEAN CORPUSCULAR HEMOGLOBIN 30.9 pg (25.6-32.2); MEAN CORPUSCULAR HGB CONC 33.2 g/dl (32.2-35.5); MEAN PLATELET VOLUME 8.4 fl (9.4-12.3); MONOCYTES ABSOLUTE AUTO 0.51 K/mm3 (0.24-0.36); MONOCYTES PERCENT AUTO 9.9 % (4.7-12.5); NEUTROPHILS ABSOLUTE AUTO 3.84 K/mm3 (1.56-6.13); NEUTROPHILS PERCENT AUTO 74.4 % (34.0-71.1); PLATELET COUNT,PLT 306 K/mm3 (182-369); RED BLOOD CELL COUNT 3.56 M/mm3 (3.98-5.22); WHITE BLOOD CELL COUNT,WBC 5.16 K/mm3 (3.98-10.04)
[2023-01-15 16:42] LABS: A/G RATIO 0.8 (1-2); ALBUMIN 2.2 g/dl (3.4-5.0); ANION GAP 10.1 (5-15); BILIRUBIN TOTAL 0.2 mg/dL (0.2-1.0); BUN/CREATININE RATIO 27.1 (14-18); C-REACTIVE PROTEIN 5.3 mg/dL (<1.0); CALCIUM 7.7 mg/dL (8.5-10.1); CREATININE 1.4 mg/dL (0.55-1.02); EST CRCL DRUG DOSING (CG) 28.14 mL/min; MAGNESIUM 1.6 mg/dL (1.8-2.4); POTASSIUM,K 4.1 mEq/L (3.5-5.1)
[2023-01-15] MEDS ORDERED: oxyCODONE 5 MG Tab PO PRN (17:13)
[2023-01-15] MEDS ORDERED: Temazepam 7.5 MG Cap PO PRN (17:13)
[2023-01-15] MEDS ORDERED: Acetaminophen 325 MG Tab PO PRN (17:13)
[2023-01-15 19:41] LABS: APPEARANCE,URINE CLEAR (Clear); BILIRUBIN,URINE NEGATIVE (Negative); COLOR,URINE YELLOW (Yellow); GLUCOSE,URINE 1+ (Negative); KETONES,URINE NEGATIVE (Negative); LEUKOCYTE ESTERASE,URINE NEGATIVE (Negative); NITRITE,URINE NEGATIVE (Negative); OCCULT BLOOD,URINE NEGATIVE (Negative); PROTEIN,URINE 1+ (Negative); UROBILINOGEN,URINE 0.2 (0.2-1.0)
[2023-01-15 19:56] LABS: BACTERIA,URINE FEW /hpf (FEW); HYALINE CASTS,URINE 0-5 /lpf (0-5); MUCUS,URINE NOT SEEN /hpf (FEW); RBC,URINE 0-5 /hpf (0-5); SQUAMOUS EPITHELIAL CELLS,UR 0-5 /hpf (0-5); WBC,URINE 0-5 /hpf (0-5)
[2023-01-15 19:57] LABS: RENAL EPITHELIAL CELLS,URINE 0-5 /hpf (0-5)
[2023-01-15] MEDS: Heparin Sodium 5,000 Units/ML Vial SUBCUT SCH (22:29)
[2023-01-16 05:58] LABS: BASOPHILS ABSOLUTE AUTO 0.02 K/mm3 (0.01-0.08); BASOPHILS PERCENT AUTO 0.5 % (0.1-1.2); EOSINOPHILS ABSOLUTE AUTO 0.03 K/mm3 (0.04-0.36); EOSINOPHILS PERCENT AUTO 0.7 (0.7-5.8); HEMATOCRIT 30.8 % (34.1-44.9); HEMOGLOBIN 10.1 gm/dl (11.2-15.7); IMMATURE GRAN ABSOLUTE AUTO 0.01 K/mm3 (0.00-0.10); IMMATURE GRAN PERCENT AUTO 0.2 % (<=1.0); LYMPHOCYTES ABSOLUTE AUTO 0.75 K/mm3 (1.18-3.74); LYMPHOCYTES PERCENT AUTO 16.9 % (19.3-51.7); MEAN CORPUSCULAR HEMOGLOBIN 30.7 pg (25.6-32.2); MEAN CORPUSCULAR HGB CONC 32.8 g/dl (32.2-35.5); MEAN CORPUSCULAR VOLUME 93.6 fl (79.4-94.8); MEAN PLATELET VOLUME 8.6 fl (9.4-12.3); MONOCYTES ABSOLUTE AUTO 0.52 K/mm3 (0.24-0.36); MONOCYTES PERCENT AUTO 11.7 % (4.7-12.5); PLATELET COUNT,PLT 319 K/mm3 (182-369); RED BLOOD CELL COUNT 3.29 M/mm3 (3.98-5.22); WHITE BLOOD CELL COUNT,WBC 4.43 K/mm3 (3.98-10.04)
[2023-01-16 06:17] LABS: A/G RATIO 0.8 (1-2); ALBUMIN 2.1 g/dl (3.4-5.0); BILIRUBIN TOTAL 0.2 mg/dL (0.2-1.0); CALCIUM 7.6 mg/dL (8.5-10.1); EST CRCL DRUG DOSING (CG) 39.39 mL/min; PROTEIN TOTAL,TP 4.7 g/dl (6.4-8.2)
[2023-01-16] MEDS: Heparin Sodium 5,000 Units/ML Vial SUBCUT SCH (06:26)
[2023-01-16] MEDS ORDERED: Dexamethasone 4 MG Tab PO SCH (08:30)
[2023-01-16] MEDS ORDERED: LENALIDOMIDE 10 MG PO SCH (09:00)
[2023-01-16] MEDS ORDERED: Furosemide 20 MG Tab PO PRN ×2 (10:45→11:00)
[2023-01-16] MEDS ORDERED: Acyclovir 200 MG Cap PO SCH ×2 (10:45→11:00)
[2023-01-16] MEDS ORDERED: Fluconazole 100 MG Tab PO SCH ×2 (10:45→11:00)
[2023-01-16] MEDS ORDERED: Aspirin 81 MG Tab.EC PO SCH ×2 (10:45→11:00)
[2023-01-16] MEDS ORDERED: Labetalol 100 MG Tab PO SCH ×2 (11:00)
[2023-01-16] MEDS ORDERED: Lisinopril 2.5 MG Tab PO SCH ×2 (11:00)
[2023-01-16] MEDS ORDERED: Levothyroxine 75 MCG Tab PO SCH ×2 (11:00)
[2023-01-16] MEDS ORDERED: Rosuvastatin 10 MG Tab PO SCH ×2 (11:00)
== END 2023-01-16 13:51 | disposition home or self-care (01) ==
LOC: JD.ED 14:31 → SUPCPDRO 14:31 → JD.MS 17:13
PROVIDERS: ADMIT Internal Medicine; ATTEND Internal Medicine
DX: I95.2 Hypotension due to drugs (principal); T46.5X5A Adverse effect of other antihypertensive drugs, initial encounter; E86.0 Dehydration; I12.9 Hypertensive chronic kidney disease with stage 1 through stage 4 chronic kidney disease, or unspecified chronic kidney disease; N18.32 Chronic kidney disease, stage 3b; C90.00 Multiple myeloma not having achieved remission; I25.10 Atherosclerotic heart disease of native coronary artery without angina pectoris; E78.00 Pure hypercholesterolemia, unspecified; K21.9 Gastro-esophageal reflux disease without esophagitis; E03.9 Hypothyroidism, unspecified; Z88.0 Allergy status to penicillin; Z79.82 Long term (current) use of aspirin; Z79.890 Hormone replacement therapy; Z79.899 Other long term (current) drug therapy
CPT/HCPCS: 36415; 80053; 81001; 83735; 85025; 86140; 93005; 96360; 96361; 96372; 99285; A9270; G0378; J1644; J3490; J7030